=== PATIENT | female | born 1980 | race Two or more races ===

== ENCOUNTER 2019-06-16 08:00 | Inpatient (IN) | payer OTHER ==
[~2019-06-16] VITALS: Ht 175.3 cm; Wt 86.6 kg
[2019-06-16] MEDS ORDERED: FLONASE16 GM NASAL (08:58)
== END 2019-06-20 13:52 | disposition home or self-care (01) | DRG 621 ==
LOC: O/R 06-19 05:00 → RECOVERY 06-19 07:00 → SURH 06-19 19:05
PROVIDERS: ADMIT Plastic Surgery
PROC: 0HBV0ZZ Excision of Bilateral Breast, Open Approach (ICD-10-PCS; 2019-06-19)
PROC: 0HRV0JZ Replacement of Bilateral Breast with Synthetic Substitute, Open Approach (ICD-10-PCS; 2019-06-19)
PROC: 0J080ZZ Alteration of Abdomen Subcutaneous Tissue and Fascia, Open Approach (ICD-10-PCS; principal; 2019-06-19 07:00)
DX: E65 Localized adiposity (principal); M62.08 Separation of muscle (nontraumatic), other site; N62 Hypertrophy of breast

== ENCOUNTER 2020-12-23 05:44 | Day surgery (SDC) | payer OTHER ==
[~2020-12-23 05:44] MED LIST: DAILY MULTIPLE1 EAC2 PO; FLONASE16 GM NASAL
== END 2020-12-23 18:00 | disposition home or self-care (01) ==
LOC: CIR.AMB 05:44
PROVIDERS: ATTEND Plastic Surgery
DX: L91.0 Hypertrophic scar (principal); Z20.822 Contact with and (suspected) exposure to COVID-19